=== PATIENT | female | born 1975 | race Caucasian/White ===

== ENCOUNTER 2019-09-30 10:22 | Inpatient (IN) | payer OTHER ==
[~2019-09-30] VITALS: Ht 175.2 cm; Wt 107.0 kg
--- NOTE | 2019-09-30 11:31 | NUR ---
43 year old FEMALE admitted to room # 501 for stabilization. Reports an addiction to HEROIN,METHADONE last used 4 hours prior to admission. Compliant with admission procedure. Patient states anxiety, able to sit still, taps toes to floor able to focus eyes on nurse during interview. See assessment forms for additional information about patient status. clothing sent with security, medications counted and sent to pharmacy. 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
[2019-09-30 11:55] VITALS: BP 120/69
--- NOTE | 2019-09-30 11:58 | NUR ---
PATIENT MEETS [facility]. CINA=21. PATIENT IS WANTING TO FOLLOW UP WITH [facility] FOR INTENSIVE OUTPATIENT TREATMENT. WILLOW MUNGUIA B.A. POWDERED SUGAR SUPERVISOR
[2019-09-30] MEDS ORDERED: DULCOLAX STOOL100 M1 PO (12:07)
[2019-09-30] MEDS ORDERED: WOMEN'S DAILY1 EAC1 PO (12:07)
[2019-09-30] MEDS ORDERED: CETIRIZINE10 MG PO (12:07)
[2019-09-30] MEDS ORDERED: BIOTIN10000 MC1 PO (12:08)
[2019-09-30] MEDS ORDERED: LAMICTAL25 MG PO (12:09)
[2019-09-30] MEDS ORDERED: ALLERGY RELIE15.8 ML NAS (12:10)
[2019-09-30] MEDS ORDERED: BUSPAR5 MG PO (12:10)
[2019-09-30] MEDS ORDERED: PYRIDOXINE HCL50 MG PO (12:11)
--- NOTE | 2019-09-30 12:13 | NUR ---
DR. SANCHEZ NOTIFIED OF PT ARRIVAL TO UNIT, HOME MEDICATIONS UPDATED WITH PATIENT MEDICATION BOTTLES WELL CLAIM HISTORY
[2019-09-30 12:33] LABS: BASO % 0.2 % (0.0-1.0); EOS # 0.1 10*3/uL (0.0-0.4); EOS % 2.1 % (1.0-4.0); HEMATOCRIT 38.6 % (37.0-47.0); LYMPH # 0.8 10*3/uL (1.3-4.4); LYMPH % 14.5 % (27.0-41.0); MEAN CELL VOLUME 87.9 fl (81.0-99.0); MEAN CORPUSCULAR HGB 28.2 pg (27.0-31.0); MEAN CORPUSCULAR HGB CONC 32.1 g/dl (33.0-37.0); MEAN PLATELET VOLUME 9.7 fl (9.6-12.3); MONO # 0.5 10*3/uL (0.1-1.0); MONO % 8.5 % (3.0-9.0); NEUT # 4.2 10*3/uL (2.3-7.9); NEUT % 74.5 % (47.0-73.0); PLATELET COUNT AUTOMATED 250 10*3/uL (130-400); RED BLOOD COUNT 4.39 10*6/uL (4.10-5.10); RED CELL DISTRI WIDTH 14.6 % (0-14.5); WHITE BLOOD COUNT 5.7 10*3/uL (4.8-10.8)
[2019-09-30 12:46] LABS: ALBUMIN 3.3 gm/dl (3.1-4.5); ALKALINE PHOSPHATASE 57 U/L (45-117); BUN 13 mg/dl (7-24); CHLORIDE 107 mmol/L (98-107); CREATININE 1.13 mg/dL (0.55-1.02); POTASSIUM 4.1 mmol/L (3.5-5.1); SGOT/AST 19 IU/L (3-35); SGPT/ALT 26 U/L (12-78); SODIUM 138 mmol/L (136-145); TOTAL PROTEIN 6.9 gm/dL (6.4-8.2)
[2019-09-30 12:47] LABS: ETHYL ALCOHOL < 3.0 mg/dl (<3)
[2019-09-30 12:53] LABS: BETA-HCG, QUANT < 1.0 mIU/mL (1-3)
[2019-09-30 12:57] LABS: URINE AMPHETAMINES > 1000 (1000ng/ml); URINE BARBITURATES < 200 (200ng/ml); URINE BENZODIAZEPINES < 200 (200ng/ml); URINE CANNABINOIDS (THC) < 50 (50ng/ml); URINE COCAINE < 300 (300ng/ml); URINE METHADONE > 300 (300ng/ml); URINE OPIATES < 300 (300ng/ml)
[2019-09-30 12:58] LABS: URINE PHENCYCLIDINE < 25 (25ng/ml)
[2019-09-30 12:59] LABS: BILIRUBIN NEGATIVE; BLOOD NEGATIVE (NEGATIVE); CLARITY SL CLOUDY (CLEAR); COLOR YELLOW (YELLOW); GLUCOSE NEGATIVE; KETONE NEGATIVE; LEUKO ESTERASE NEGATIVE (NEGATIVE); NITRITE NEGATIVE (NEGATIVE)
[2019-09-30 13:04] LABS: BACTERIA 1+; EPITHELIAL CELLS 41-50
--- NOTE | 2019-09-30 13:59 | NUR ---
PT IS SLEEPING, NO DISTRESS NOTED
--- NOTE | 2019-09-30 14:42 | NUR ---
PT REQUEST PRN FOR RESTLESS LEG, ANXIETY, MUSCLE ACHES. FIRST DOSE SUBUTUX GIVEN. DR. SANCHEZ IN TO SEE PATIENT.
--- NOTE | 2019-09-30 15:40 | NUR ---
PRN MEDICATIONS EFFECTIVE
[2019-09-30 16:00] VITALS: BP 126/60
--- NOTE | 2019-09-30 17:20 | NUR ---
PT RESTING, NO SIGNS OF DISTRESS NOTED AT THIS TIME. TYLENOL EFFECTIVE FOR HAND ARTHRITIS PAIN
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
[2019-09-30 20:00] VITALS: BP 131/72
--- NOTE | 2019-09-30 21:36 | NUR ---
[id number] PT. C/O ANXIETY,MUSCLE ACHES AND JUST WANTS TO SLEEP. VISTARIL, ROBAXIN AND TRAZADONE GIVEN PER CESAR SEE APR.
--- NOTE | 2019-09-30 22:30 | NUR ---
ROBAXIN, VISTARIL AND TRAZADONE EFFECTIVE FOR WITHDRAWL SYMPTOMS PER PT.
--- NOTE | 2019-09-30 22:45 | NUR ---
24 HR chart check completed.
[2019-10-01] VITALS: BP 122/66
[2019-10-01 05:00] VITALS: BP 124/74
--- NOTE | 2019-10-01 05:20 | NUR ---
AWAKE C/O ANXIETY, MUSCLE ACHES AND RESTLESSNESS VISTARIL, ROBAXIN AND REQUIP GIVEN PER ORDER FOR WITHDRAWL SYMPTOMS.
--- NOTE | 2019-10-01 05:28 | NUR ---
REFUSED LOVENOX AT THIS TIME.
--- NOTE | 2019-10-01 06:20 | NUR ---
PRN MEDICATIONS EFFECTIVE FOR WITHDRAWL SYMPTOMS.
[2019-10-01 07:10] LABS: BUN 9 mg/dl (7-24); CHLORIDE 113 mmol/L (98-107); CREATININE 0.74 mg/dL (0.55-1.02); POTASSIUM 3.4 mmol/L (3.5-5.1); SODIUM 144 mmol/L (136-145)
[2019-10-01 08:00] VITALS: BP 110/75
--- NOTE | 2019-10-01 09:00 | NUR ---
PATIENT AWAKE LAYING IN BED. RESPIRATIONS EASY, NON LABORED. NO SIGNS OF DISTRESS. VOICES NO COMPLAINTS/NEEDS. WILL CONTINUE TO MONITOR.
--- NOTE | 2019-10-01 11:54 | NUR ---
PATIENT C/O MUSCLE ACHES. MEDICATED WITH MOTRIN AND ROBAXIN. WILL CHECK EFFECTIVENESS.
[2019-10-01 12:00] VITALS: BP 115/83
--- NOTE | 2019-10-01 12:54 | NUR ---
PATIENT STATES ROBAXIN AND MOTRIN ARE HELPING WITH HER MUSCLE ACHES. WILL CONTINUE TO MONITOR.
--- NOTE | 2019-10-01 14:58 | NUR ---
[place] STAFF IN TO SEE PATIENT. PATIENT IS FOLLOWING UP WITH [facility] FOR INTENSIVE OUTPATIENT TREATMENT. WILLOW MUNGUIA B.A. PERSONAL INJURY LAW SPECIALIST
[2019-10-01 16:00] VITALS: BP 126/80
--- NOTE | 2019-10-01 17:13 | NUR ---
PATIENT MEDICATED WITH VISTARIL AND REQUIP PER REQUEST. WILL CHECK EFFECTIVENESS.
--- NOTE | 2019-10-01 17:35 | NUR ---
PRN IBUPROFEN GIVEN FOR PAIN WILL REASSESS EFFECTIVENESS.
[2019-10-01 20:00] VITALS: BP 130/71
--- NOTE | 2019-10-01 21:24 | NUR ---
PATIENT MEDICATED WITH TRAZADONE FOR C/O SLEEPLESSNESS.
--- NOTE | 2019-10-01 22:20 | NUR ---
SLEEPING. TRAZADONE EFFECTIVE.
--- NOTE | 2019-10-01 22:38 | NUR ---
NOTIFIED DR. ROYAL PATIENT MED REC HAS NOT BEEN DONE.
[2019-10-02] VITALS: BP 124/64
--- NOTE | 2019-10-02 02:44 | NUR ---
PT. CALLED OUT AND WANTED SOMETHING FOR WITHDRAWL SYMPTOMS. PT. C/O ANXIOUSNESS,C/O MUSCLE CRAMPS. VISTARIL, ROBAXIN AND MOTRIN GIVEN FOR SYMPTOMS. SEE MAR.
--- NOTE | 2019-10-02 03:42 | NUR ---
WITHDRAWL MEDICATION EFFECTIVE PATIENT RESTING EASY.
--- NOTE | 2019-10-02 05:55 | NUR ---
PATIENT AWAKEND BY LAB AND SUBUTEX GIVEN PER ORDER AND REQUIP GIVEN FOR RESTLESSNESS OF LEGS. SEE MAR.
[2019-10-02 06:28] LABS: BUN 7 mg/dl (7-24); CHLORIDE 113 mmol/L (98-107); CREATININE 0.63 mg/dL (0.55-1.02); POTASSIUM 3.5 mmol/L (3.5-5.1); SODIUM 143 mmol/L (136-145)
--- NOTE | 2019-10-02 06:54 | NUR ---
REEQUIP EFFECTIVE FOR RESTLESSNESS PT. PATIENT.
[2019-10-02 08:00] VITALS: BP 112/70
[2019-10-02 12:00] VITALS: BP 127/81
--- NOTE | 2019-10-02 13:29 | NUR ---
Shift chart check completed.
--- NOTE | 2019-10-02 14:21 | NUR ---
[place] STAFF IN TO SEE PATIENT. PATIENT WILL BE FOLLOWING UP WITH [facility] FOR INTENSIVE OUTPATIENT TREATMENT. PATIENT REPORTS THAT HER BOYFRIEND'S FATHER WILL BE PROVIDING TRANSPORTATION ONCE DISCHARGED FROM [facility]. WILLOW MUNGUIA B.A. OLIVE PITTER
--- NOTE | 2019-10-02 15:57 | NUR ---
PT REQUESTING REQUIP, ROBAXIN AND LEGS AND ACHES AND PRN IBUPROFEN FOR LEG PAIN. SEE EMAR.
[2019-10-02 16:00] VITALS: BP 112/90
--- NOTE | 2019-10-02 16:57 | NUR ---
PT REPORTS PRN MEDS WERE EFFECTIVE.
[2019-10-02 20:00] VITALS: BP 118/57
--- NOTE | 2019-10-02 21:57 | NUR ---
PRN TRAZADONE AND VISTARIL GIVEN AT THIS TIME AT PATIENT REQUEST FOR SLEEP AND ANXIETY.
--- NOTE | 2019-10-02 22:40 | NUR ---
PATIENT RESTING IN A POSITION OF COMFORT AT THIS TIME IN BED WITH EYES CLOSED. VISTARIL AND TRAZADONE APPEAR TO BE EFFECTIVE.
[2019-10-03] VITALS: BP 126/70
--- NOTE | 2019-10-03 01:46 | NUR ---
PRN MOTRIN GIVEN AT THIS TIME FOR PATIENT COMPLAINT OF BILATERAL LEG PAIN 07/15. A&O X3, CALL LIGHT WITHIN REACH, WILL CONTINUE TO MONITOR.
--- NOTE | 2019-10-03 01:53 | NUR ---
PATIENT GIVEN PRN REQUIP AND ROBAXIN AT THIS TIME FOR COMPLAINT OF RESTLESS LEGS AND MUSCLE CRAMPS IN BILATERAL LEGS. A&O X3, CALL LIGHT WITHIN REACH. WILL MONITOR.
--- NOTE | 2019-10-03 02:30 | NUR ---
PRN REQUIP AND ROBAXIN EFFECTIVE FOR PATIENT COMPLAINT OF RESTLESS LEG AND LEG CRAMPS.
--- NOTE | 2019-10-03 03:07 | NUR ---
24 HOUR CHART CHECK COMPLETE
[2019-10-03 08:00] VITALS: BP 119/61
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
--- NOTE | 2019-10-03 10:21 | NUR ---
Discharge instructions reviewed with patient/family. Patient receptive and verbalizes understanding. Follow-up care arranged. Written instructions given to patient/family. DANIELE SALEH
== END 2019-10-03 10:21 | disposition home or self-care (01) | DRG 773 ==
LOC: 5E 10:22
PROVIDERS: Hospitalist; Internal Medicine; ADMIT Student in an Organized Health Care Education/Training Program; ATTEND Student in an Organized Health Care Education/Training Program
DX: F11.23 Opioid dependence with withdrawal (principal); F15.10 Other stimulant abuse, uncomplicated; N17.0 Acute kidney failure with tubular necrosis; G25.81 Restless legs syndrome; F41.9 Anxiety disorder, unspecified; F17.210 Nicotine dependence, cigarettes, uncomplicated; Z71.6 Tobacco abuse counseling; F43.10 Post-traumatic stress disorder, unspecified; Z68.34 Body mass index [BMI] 34.0-34.9, adult; Z90.710 Acquired absence of both cervix and uterus; Z79.899 Other long term (current) drug therapy